=== PATIENT | male | born 1960 | race Caucasian/White ===

== ENCOUNTER → 2023-09-27 14:26 | Outpatient (REF) | payer BC, SELFPAY | LOC: RAD 14:26 | PROVIDERS: ATTENDING PHYSICIAN Family Medicine; FAMILY PHYSICIAN Family Medicine | DX: M79.644 Pain in right finger(s) (principal) | CPT/HCPCS: 73130; 73140 ==

== ENCOUNTER 2023-12-15 12:28 | Outpatient (RCR) | payer BC, SELFPAY | END 2023-12-15 23:59 | disposition home or self-care (01) | LOC: ROT 12:28 | PROVIDERS: ATTENDING PHYSICIAN Orthopaedic Surgery Hand Surgery; FAMILY PHYSICIAN Family Medicine | DX: S62.620D Displaced fracture of middle phalanx of right index finger, subsequent encounter for fracture with routine healing (principal); X58.XXXD Exposure to other specified factors, subsequent encounter; Z73.6 Limitation of activities due to disability | CPT/HCPCS: 97022; 97140; 97166; 97535 ==

== ENCOUNTER 2024-01-05 17:31 | Outpatient (RCR) | payer BC, SELFPAY | END 2024-01-05 23:59 | disposition home or self-care (01) | LOC: ROT 17:31 | PROVIDERS: ATTENDING PHYSICIAN Orthopaedic Surgery Hand Surgery; FAMILY PHYSICIAN Family Medicine | DX: S63.630 Sprain of interphalangeal joint of right index finger (principal); Z73.6 Limitation of activities due to disability | CPT/HCPCS: 97022; 97110; 97140; 97535 ==

== ENCOUNTER → 2024-01-31 07:46 | Outpatient (REF) | payer BC, SELFPAY | LOC: EMG 07:46 | PROVIDERS: ATTENDING PHYSICIAN Orthopaedic Surgery Hand Surgery; FAMILY PHYSICIAN Family Medicine | DX: G56.02 Carpal tunnel syndrome, left upper limb (principal) | CPT/HCPCS: 95886; 95909 ==

== ENCOUNTER 2024-03-02 06:18 | Day surgery (SDC) | payer BC, SELFPAY | END 2024-03-02 09:58 | disposition home or self-care (01) | LOC: GI 06:18 | PROVIDERS: ATTENDING PHYSICIAN Internal Medicine Gastroenterology | DX: Z12.11 Encounter for screening for malignant neoplasm of colon (principal); K64.8 Other hemorrhoids; K57.30 Diverticulosis of large intestine without perforation or abscess without bleeding | CPT/HCPCS: G0121 ==